=== PATIENT | male | born 1935 | race Caucasian/White ===

== ENCOUNTER → 2017-01-22 10:17 | Day surgery (SDC) | payer MEDICARE ==
[~2017-01-22 10:17] MED LIST: Acetaminophen TAB* 325 MG PO PRN; Buffered Lidocaine 1% SYRIN* 3 ML/SYR SYRINGE INTRADERM ONE; Cyclopentolate 1% OPTH.SOL* 2 ML BTL ONE; Flurbiprofen 0.03% OPTH.SOL* 2.5 ML BTL ONE; Lidocaine 1% MPF* 2 ML VIAL ONE; Lidocaine 2% EPI 1:200000 MPF* 20 ML VIAL ONE; Midazolam* 1 MG/ML 2 ML VIAL (2 MG) ONE; Neomycin/Polymy/Dex OPTH.SUSP* MAXITROL 0.1% 5 ML ONE; Phenylephrine 2.5% OPTH.SOL* 2 ML BTL ONE; Povidone Iodine 5% OPTH* 30 ML BTL ONE; Proparacaine 0.5% OPHTH.SOL* 15 ML BTL ONE; acetaZOLAMIDE TAB* 250 MG ONE
[2017-01-22 13:46] VITALS: BP 109/67
--- NOTE | 2017-01-23 04:15 | OP ---
DATE OF OPERATION: 01/22/17 - [facility] DATE OF : 35 SURGEON: Moises Guillen MD PREOPERATIVE DIAGNOSIS: Cataract, left eye. POSTOPERATIVE DIAGNOSIS: Cataract, left eye. OPERATIVE PROCEDURE: Phacoemulsification, left eye with IOL. DESCRIPTION OF PROCEDURE: The patient was brought to the operating room after being given 1/2% Alcaine with epinephrine drops in the preoperative area. The eye was prepped and draped in the usual sterile fashion. Sterile drape and eyelid speculum were placed. Again, topical 1/2% Alcaine with epinephrine was given. A paracentesis incision was made at the 3 o'clock position with the No.75 blade. Clear cornea incision 2.2 x 2.2-mm was created at the 6 o'clock position starting at the anterior limbus using the 2.2-mm keratome. The anterior chamber was irrigated with 0.4 mL of 1% non-preservative intracameral lidocaine and filled with DisCoVisc. A capsulorrhexis was completed using the cystotome and the Utrata forceps. Hydrodissection was performed with balanced salt solution. The lens nucleus was removed with the Phacoemulsification handpiece without incident. Cortex was removed with the irrigation-aspiration handpiece. The capsular bag was re-inflated using DisCoVisc and an SN60WF 17.5 implant was inserted with the shooter. The irrigation-aspiration handpiece was used to remove all residual DisCoVisc. The eye was refilled with balanced salt solution and the wound checked and found to be watertight. Topical Maxitrol drops were given. [id number]/[facility] #: [id number] [facility]ITAL[facility]
== END | disposition home or self-care (01) ==
LOC: OREAST 10:17
PROVIDERS: ATTEND Specialist
DX: H25.812 Combined forms of age-related cataract, left eye (principal); E11.3293 Type 2 diabetes mellitus with mild nonproliferative diabetic retinopathy without macular edema, bilateral; H18.613 Keratoconus, stable, bilateral; I27.81 Cor pulmonale (chronic); E66.01 Morbid (severe) obesity due to excess calories; Z68.42 Body mass index [BMI] 45.0-49.9, adult; D56.3 Thalassemia minor; I10 Essential (primary) hypertension; I35.0 Nonrheumatic aortic (valve) stenosis
CPT/HCPCS: J2250; V2632

== ENCOUNTER 2017-05-12 15:25 | Observation (INO) | payer MEDICARE ==
--- NOTE | 2017-05-12 16:11 | RAD ---
INDICATION: Weakness COMPARISON: July 11, 2015 TECHNIQUE: An AP portable view obtained at 1538 hours is submitted. FINDINGS: Bones/Soft Tissues: There are no acute bony findings. Cardiomediastinal: The correct silhouette is enlarged. The central pulmonary vessels and interstitium are prominent. Lungs: No focal consolidation. Pleura: Small bilateral pleural effusions. Other: None IMPRESSION: WORSENING INTERSTITIAL CONGESTION.
[2017-05-12 16:12] LABS: Add Diff/Slide Review? Slide Review Added; Comments Flag Yes; Hematocrit 37 % (42-52); Hemoglobin 11.6 g/dl (14.0-18.0); Mean Corpuscular HGB Conc 32 g/dl (31-36); Mean Corpuscular Hemoglobin 20 pg (27-31); Mean Corpuscular Volume 63 fL (80-94); Mean Platelet Volume 9 um3 (7.4-10.4); Red Blood Count 5.84 10^6/ul (4.0-5.4); Red Cell Distribution Width 15 % (10.5-15); White Blood Count 16.1 10^3/ul (3.5-10.8)
[2017-05-12 16:45] LABS: Hypochromasia 3+; Immature Granulocytes 16 % (0-9); Microcytosis 2+; Neutrophil % 76 % (38-83); Stomatocytes 1+
[2017-05-12 16:46] LABS: Add Path Review? YES
[2017-05-12] MEDS ORDERED: HYDROmorphone* 1 MG/ML 1 ML SYR IV SLOW PU ONE (16:51)
[2017-05-12] MEDS ORDERED: NS 0.9% 1000 ML* 1,000 ML IV ONE ×2 (16:51→16:56)
[2017-05-12] MEDS ORDERED: Ondansetron INJ* 2 MG/ML VIAL IV ONE (16:51)
[2017-05-12] MEDS ORDERED: ceFAZolin 1 GM ADVAN(*) 1 GM in NS 0.9% 50 ML* 50 ML IVPB ONE (16:52)
[2017-05-12] MEDS ORDERED: NS 0.9% 50 ML* 50 ML ONE (16:55)
--- NOTE | 2017-05-12 17:25 | ED ---
Rhonda Heredia Edward, scribed for Verito Meyer MD on 05/12/17 at 1529 . Lower Extremity - HPI Summary HPI Summary: 82 y/o male JYOTI c/o acute on chronic leg pain starting at 11:00 this morning. Patient states his legs are chronically weak but only became painful this morning. The patient can't ambulate or stand due to pain. He also injured his L leg 2 days ago. Associated sx: bilateral edema in the LE's. PMHx DM and knee problems. - History of Current Complaint Stated Complaint: LEG PAIN Time Seen by Provider: 05/12/17 15:27 Hx Obtained From: Patient Onset of Pain: Hours - 11:00 this morning, Prior to Arrival Onset/Duration: Weeks - Weekness in both legs for weeks. Pain starting this morning Timing: Constant Associated Signs And Symptoms: Positive: Swelling - Bilateral legs, Weakness - Bilateral legs, Knee Pain - Bilateral - Allergies/Home Medications Allergies/Adverse Reactions: Allergies Allergy/AdvReac Type Severity Reaction Status Date / Time Adhesive Tape [Paper Tape] Allergy Unknown Verified 05/12/17 15:32 Reaction Details Home Medications: Home Medications Diclofenac 1% GEL (NF) [Voltaren 1% GEL (NF)] 1 applic TOPICAL QID 05/12/17 [ History Confirmed 05/12/17] Digoxin [Digitek] 62.5 mcg PO DAILY 05/12/17 [History Confirmed 05/12/17] Docusate CAP* [Colace Cap*] 100 mg PO DAILY 05/12/17 [History Confirmed 05/12/17 ] Furosemide TAB* [Lasix TAB*] 80 mg PO BID 05/12/17 [History Confirmed 05/12/17] Ranitidine TAB (NF) [Zantac TAB (NF)] 150 mg PO DAILY 05/12/17 [History Confirmed 05/12/17] aMILoride TAB* [Midamor TAB*] 5 mg PO DAILY 05/12/17 [History Confirmed 05/12/17 ] PMH/Surg Hx/FS Hx/Imm Hx Previously Healthy: No Endocrine/Hematology History: Reports: Hx Blood Transfusions, Hx Diabetes - TYPE II- ON ORAL MEDICATION FOR, Other Endocrine/Hematological Disorders - thalasemia Denies: Hx Anticoagulant Therapy, Hx Thyroid Disease, Hx Anemia Cardiovascular History: Reports: Hx Hypertension - ON MEDICATION FOR, 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 Denies: Hx Pacemaker/ICD Respiratory History: Reports: Hx Chronic Obstructive Pulmonary Disease (COPD) - O2 dependent, Hx Sleep Apnea, Other Respiratory Problems/Disorders - CONTINUOUS O2 2 LITERS VIA NASAL CANNULA Denies: Hx Asthma GI History: Reports: Hx Gall Bladder Disease, Hx Ulcer - gerd Denies: Hx Jaundice Musculoskeletal History: Reports: Hx Arthritis - KNEES Denies: Hx Back Problems Sensory History: Reports: Hx Cataracts, Hx Contacts or Glasses - GLASSES Denies: Hx Hearing Aid Opthamlomology History: Reports: Hx Cataracts, Hx Contacts or Glasses - GLASSES Neurological History: Reports: Hx Headaches - Surgical History Surgery Procedure, Year, and Place: 1970 Hx Anesthesia Reactions: No Infectious Disease History: Denies: Hx Clostridium Difficile, Hx Hepatitis, Hx Human Immunodeficiency Virus (HIV), Hx of Known/Suspected MRSA, Hx Shingles, Hx Tuberculosis - Family History Known Family History: Positive: Cardiac Disease - CAD - mother 80's, Respiratory Disease - COPD - father in 70's - Social History Alcohol Use: Daily Alcohol Amount: 0.5 CAN BEER DAILY Hx Substance Use: No Substance Use Type: Reports: None Hx Tobacco Use: Yes Smoking Status (MU): Former Smoker Type: Cigarettes Amount Used/How Often: 2 PPD X 32 YEARS Have You Smoked in the Last Year: No Review of Systems Constitutional: Negative Eyes: Negative ENT: Negative Cardiovascular: Negative Respiratory: Negative Gastrointestinal: Negative Genitourinary: Negative Positive: Arthralgia - Bilateral knee pain, Edema - Bilateral legs Skin: Negative Positive: Weakness - Bilateral legs Psychological: Normal All Other Systems Reviewed And Are Negative: Yes Physical Exam Triage Information Reviewed: Yes Vital Signs On Initial Exam: Initial Vitals Temp Pulse Resp BP Pulse Ox 97.9 F 100 18 87/59 95 05/12/17 15:29 05/12/17 15:29 05/12/17 15:29 05/12/17 15:29 05/12/17 15:29 Vital Signs Reviewed: Yes Appearance: Positive: Well-Appearing, No Pain Distress Skin: Positive: Warm, Skin Color Reflects Adequate Perfusion, Dry, Erythema @ - Lots of erythema on both legs, Other - Abrasion on L leg over the front Eyes: Positive: EOMI, NAZARIO ENT: Positive: Pharynx normal, TMs normal Neck: Positive: Supple, Nontender Respiratory/Lung Sounds: Positive: Clear to Auscultation, Breath Sounds Present , Other - Tachypnic. Negative: Rales, Rhonchi, Wheezes Cardiovascular: Positive: RRR, Other - No gallop. Negative: Murmur, Rub Abdomen Description: Positive: Nontender, Soft, Other: - No rebound. Negative: Distended, Guarding Bowel Sounds: Positive: Present Musculoskeletal: Positive: Strength/ROM Intact, Edema Left - To upper legs, Edema Right - To upper legs Neurological: Positive: Sensory/Motor Intact, Alert, Oriented to Person Place, Time, CN Intact II-III Psychiatric: Positive: Affect/Mood Appropriate Diagnostics - Vital Signs Vital Signs Temp Pulse Resp BP Pulse Ox 05/12/17 16:59 85 20 95 05/12/17 16:30 83 89/61 93 05/12/17 16:00 87 98/59 93 05/12/17 15:53 98 98/51 91 05/12/17 15:32 103 93 05/12/17 15:30 97.9 F 95 18 87/59 95 05/12/17 15:29 97.9 F 100 18 87/59 95 - Laboratory Lab Results: Lab Results 05/12/17 Range/Units 15:44 WBC 16.1 H (3.5-10.8) 10^3/ul RBC 5.84 H (4.0-5.4) 10^6/ul Hgb 11.6 L (14.0-18.0) g/dl Hct 37 L (42-52) % MCV 63 L (80-94) fL MCH 20 L (27-31) pg MCHC 32 (31-36) g/dl RDW 15 (10.5-15) % Plt Count 153 (150-450) 10^3/ul MPV 9 (7.4-10.4) um3 Immature Gran % (Auto) 16 H (0-9) % Neut % (Auto) 89.4 H (38-83) % Lymph % (Auto) 1.9 L (25-47) % Glades % (Auto) 8.3 (1-9) % Eos % (Auto) 0.1 (0-6) % Baso % (Auto) 0.3 (0-2) % Absolute Neuts (auto) 14.4 H (1.5-7.7) 10^3/ul Absolute Lymphs (auto) 0.3 L (1.0-4.8) 10^3/ul Absolute Monos (auto) 1.3 H (0-0.8) 10^3/ul Absolute Eos (auto) 0 (0-0.6) 10^3/ul Absolute Basos (auto) 0.1 (0-0.2) 10^3/ul Absolute Nucleated RBC 0.04 10^3/ul Neutrophils % 76 (38-83) % Band Neutrophils % 16 H (0-8) % Lymphocytes % 3 L (25-47) % Monocytes % 4 (0-13) % Basophils % 1 (0-2) % Nucleated RBC % 0.3 Normal RBC Morphology Not Reportable Hypochromasia 3+ Microcytosis 2+ Stomatocytes 1+ Elliptocytes 1+ Hem Pathologist Commnt Pending Result Diagrams: 05/12/17 15:44 Lab Statement: Any lab studies that have been ordered have been reviewed, and results considered in the medical decision making process. - Radiology CXR Xray Interpretation: Positive (See Comments) - WORSENING INTERSTITIAL CONGESTION. Radiology Interpretation Completed By: Radiologist - EKG 1 EKG Rhythm: Sinus Rhythm - @ 92 bpm EKG Interpretation: 15:51 - RBBB EKG Comparison: No Significant Change - 08/04/14 Lower Extremity Course/Dx - Course Course Of Treatment: 82 yo morbidly obese male with long standing lower ext edema with increased pain today. He has an abrasion over his left leg anteriorally and has a bandemia and wbc. Ancef has been ordered and given his low bp fluids have been ordered. the case was discussed with Dr. Martinez for admission - Diagnoses Provider Diagnoses: Type 2 diabetes mellitus, Cellulitis Discharge - Discharge Plan Condition: Stable Disposition: HOME The documentation as recorded by the Rhonda lyn Edward accurately reflects the service I personally performed and the decisions made by me, Verito Meyer MD.
[2017-05-12] MEDS ORDERED: Acetaminophen TAB* 325 MG PO PRN (17:56)
[2017-05-12] MEDS ORDERED: Dextrose 50% Syringe 50 ML* 25 GM/50 ML SYRINGE IV PUSH PRN (17:56)
[2017-05-12 17:58] LABS: Albumin 3.4 g/dL (3.2-5.2); C Reactive Protein 22.77 mg/L (< 5.00); EGFR African American 72.5 (>60); EGFR Non-African American 56.3 (>60); Globulin 3.7 g/dL (2-4); Total Bilirubin 1.7 mg/dL (0.2-1.0); Total Protein 7.1 g/dL (6.4-8.9)
[2017-05-12] MEDS ORDERED: Ondansetron INJ* 2 MG/ML VIAL IV SCH (18:00)
[2017-05-12] MEDS ORDERED: NS 0.9% 1000 ML* 1,000 ML IV SCH (18:00)
[2017-05-12] MEDS ORDERED: Insulin NPH(*) 1 UNITS UNIT SUBCUT SCH (18:00)
[2017-05-12] MEDS ORDERED: Albuterol 2.5 MG/3 ML NEB.SOL* (0.083%) INH PRN (18:12)
[2017-05-12 19:08] LABS: Urine Bacteria 1+ (Absent); Urine Bilirubin Negative (Negative); Urine Glucose Negative (Negative); Urine Nitrite Negative (Negative)
[2017-05-12] MEDS ORDERED: cefTRIAXone VIAL(*) 1,000 MG in NS 0.9% 50 ML* 50 ML IVPB SCH (20:00)
[2017-05-12] MEDS ORDERED: Ondansetron INJ* 2 MG/ML VIAL IV PRN (20:17)
[2017-05-12] MEDS: Heparin VIAL(*) 5000 UNITS/ML VIAL (FIVE THOUSAND) SUBCUT SCH (21:14)
[2017-05-12 22:17] LABS: Potassium 3.8 mmol/L (3.5-5.0)
--- NOTE | 2017-05-13 04:53 | HP ---
CC: Dr. Weston * HISTORY AND PHYSICAL: DATE OF ADMISSION: 05/12/17 PRIMARY CARE PROVIDER: Dr. Weston. ATTENDING PHYSICIAN WHILE IN THE HOSPITAL: Dr. Sarah Villela * (report dictated by Kole Dunham NP). CHIEF COMPLAINT: 1. Confusion. 2. Chills. 3. Shaking. 4. Weakness. HISTORY OF PRESENT ILLNESS: Mr. Huitron is an 82-year-old male patient who has a history of AFib, not on anticoagulation; history of GI bleed; history of diabetes; CKD, stage 3; aortic stenosis; BPH; hypertension; COPD; thalassemia minor; glaucoma; and NARA, who does not wear a mask. He comes in to the ER today and the stating that this morning it was noted that she was gone blueberry picking, he called his because he just was not feeling good. He was feeling shaky. He was feeling weak. His came back to evaluate him. It was noted that he was not acting himself. He could not operate his mechanical wheelchair. There was concern that he was acting confused, so she called 911. When 911 got there, they noted that he had a low-grade temperature of 100. There was an episode of nausea, but no vomiting. He denied having any dysuria. When the ambulance got there for the first time, he refused transport to the hospital. The patient's was still concerned because he could not get out of his wheelchair, which he normally can do to get into his recliner. He again tried for about 40 minutes. She called his primary. The primary felt that he should come in to the ER, so he came in. There has been reports of 4 days ago that the patient did scuff his left leg outside when on his wheelchair and he has noticed that there has been increasing redness and swelling at the site. It is on the pretibial area of the left lower extremity. He says he has not had any dysuria. No nausea but there has been no vomiting. He denied any dysuria. There has been no cough. He says he is short of breath, but it is not any worse that at his baseline. He was concerned because of this confusion and weakness and they came into the hospital. He was evaluated here. It was noted that he had bandemia. He had a white count. There was concern for cellulitis possibly from an underlying urinary infection, so the hospitalist service was asked to evaluate for admission. PAST MEDICAL HISTORY: Significant for: 1. AFib. 2. Diabetes. 3. CKD, stage 3. 4. Aortic stenosis. 5. BPH. 6. Hypertension. 7. COPD. 8. Thalassemia minor. 9. Glaucoma. 10. NARA. PAST SURGICAL HISTORY: 1. He has had a cholecystectomy. 2. Tonsillectomy. HOME MEDICATIONS: According to the list that he provided us includes: 1. Midamor 5 mg daily. 2. Hytrin 5 mg daily. 3. Zantac 150 mg daily. 4. Multivitamin 1 tablet daily. 5. Laxative formula 3 tablets p.o. daily as needed. 6. Insulin NPH take 55 units in the morning, 35 units at bedtime. 7. Lasix 80 mg p.o. twice a day. 8. Colace 100 mg daily. 9. Digoxin 62.5 mcg p.o. daily. 10. Diclofenac 1 application topically 4 times a day. 11. Tylenol Extra Strength 500 mg p.o. daily as needed. ALLERGIES TO MEDICATIONS: Include none, but he is allergic to ADHESIVE TAPES. FAMILY HISTORY: Mother had history of CAD. Father had a history of COPD. SOCIAL HISTORY: He is a former smoker, does not drink alcohol. Surrogate decision maker is his . REVIEW OF SYSTEMS: There is no documented fever. He does admit to having chills. No significant weight change. No double vision. He denies having any ear discharge. There was no rhinorrhea, no sore throat, no thyroid enlargement. Denies having any chest pain. There is no orthopnea, no nocturnal dyspnea. There was no abdominal pain. There was one episode of nausea, but no vomiting, no dysuria. There is no frequency. There is no seizure. No loss of consciousness, no pruritus. No skin ulcerations. Review of 14 systems completed, all others negative. PHYSICAL EXAMINATION GENERAL: At this time, Mr. Huitron is an 82-year-old male patient. He is morbidly obese. He is sitting in the hospital recliner. He does not appear to be in any acute distress. VITAL SIGNS: Blood pressure 96/57 with a pulse of 84, respirations 18, O2 sat 95% on 2 L, temperature 97.9. HEENT: Head is atraumatic and normocephalic. Eyes: EOMs are intact. His sclerae are anicteric. Throat: Oral mucosa appears dry. No oropharyngeal erythema. NECK: Supple. LUNGS: Clear to auscultation. No wheezes, rales, or rhonchi. HEART: Sounds S1, S2. Irregularly irregular rate. No murmurs, rubs, or gallops. ABDOMEN: Soft, flat, nontender. Bowel sounds are present. EXTREMITIES: Pulses 2+ throughout. He does have what appears to be chronic venous stasis, but he does have an open area noted to the left pretibial area and an abrasion. NEUROLOGIC: He is awake, alert, and oriented x3. Tongue midline. Poultry Service Technician were equal. No gross focal deficits. SKIN: On the left pretibial area, he has an abrasion noted with some surrounding erythema and warmth and skin tear again sustained 4 days ago. No other open areas were noted. DIAGNOSTIC STUDIES/LAB DATA: His labs today, some of which are pending, revealed WBC of 16.1, RBC of 5.84, hemoglobin 11.6, hematocrit is 37, which is near his baseline, bands of 16%. His sodium, potassium, and chloride are pending. His bicarb is 32. His BUN is 27. His creatinine is 1.23, right near his baseline. His glucose was 70. Lactic 1.4, calcium 9, total bili 1.7, AST 24 , ALT 11, alk phos 73, CRP 22, albumin of 3.4. He did have a chest x-ray obtained today, which revealed worsening interstitial congestion, although he is not having any symptoms of this. He had an EKG obtained today, which showed atrial fibrillation with a rate of 92. He does have a right bundle branch block, which appears to be similar to previous EKGs. Old medical records were reviewed. ASSESSMENT AND PLAN: Mr. Huitron is an 82-year-old male patient with multiple medical problems coming into the ER today with complaints of not feeling well, chills, weakness, and confusion on evaluation and found to be septic with evidence of bandemia, elevated white count. Fortunately, he is not tachycardic currently. He is a little hypotensive. His blood pressures were initially in the 80s, they are now up to 96/57 with fluids. He will be admitted under inpatient status for: 1. Sepsis secondary to most likely cellulitis. Again, his urine is pending but I suspect the sources are leg. I am going to go ahead and put him on Rocephin. He did get a dose of Ancef down here. With Rocephin, we will cover staph and strep pretty well and in addition to this, if there is any urinary component, will cover that as well. My plan is to go ahead and continue to follow him closely. Should he has any deterioration, I would broaden his antibiotics out to vancomycin, but this looks to me to be a strep-like infection. We will hydrate him. Blood cultures have been sent and we will follow closely. 2. Atrial fibrillation. He is rate controlled. He is not on any blood thinners because of the history of bleeding. I will continue his meds as prescribed. 3. Diabetes. Put him on his NPH; in addition to this, put him on sliding scale. 4. Chronic kidney disease, stage 3. His creatinine is stable. 5. Aortic stenosis. Follow up with his primary. 6. Benign prostatic hypertrophy. Continue his Hytrin. 7. Hypertension. I am going to hold his antihypertensive in the setting of sepsis. 8. Chronic obstructive pulmonary disease. I will order p.r.n. albuterol. 9. Thalassemia minor. His H and H is stable. We will follow. 10. Glaucoma. He can follow up with his primary, not an active issue. 11. History of obstructive sleep apnea. Follow with primary. 12. DVT prophylaxis. I will go ahead and place him on heparin subcu as he is high risk for deep venous thrombosis. 13. Code status. Full code. 14. Fluid, electrolyte, nutrition. He can have a consistent carb diet. TIME SPENT: Time spent on the admission was approximately 60 minutes, greater than half the time spent [id number] with the patient obtaining my history and physical, the other half of the time was spent going over the plan of care with the patient and implementing plan of care. I did discuss the plan of care with my attending, Dr. Villela, she is in agreement. KOLE DUNHAM, YING [id number]/[facility] #: [id number] DARYL
[2017-05-13 05:25] LABS: Hematocrit 34 % (42-52); Hemoglobin 10.3 g/dl (14.0-18.0); Mean Corpuscular HGB Conc 30 g/dl (31-36); Mean Corpuscular Hemoglobin 19 pg (27-31); Mean Platelet Volume 9 um3 (7.4-10.4); Red Blood Count 5.31 10^6/ul (4.0-5.4); Red Cell Distribution Width 16 % (10.5-15); White Blood Count 14.4 10^3/ul (3.5-10.8)
[2017-05-13 05:31] LABS: Comments Flag Yes; Mean Corpuscular Volume 64 fL (80-94)
[2017-05-13 05:38] LABS: BUN/Creatinine Ratio 20.3 (8-20); Calcium 8.3 mg/dL (8.6-10.3); EGFR African American 56.3 (>60); EGFR Non-African American 43.8 (>60); Potassium 4.7 mmol/L (3.5-5.0)
[2017-05-13] MEDS: Heparin VIAL(*) 5000 UNITS/ML VIAL (FIVE THOUSAND) SUBCUT SCH (06:14)
[2017-05-13] MEDS ORDERED: Insulin LISPRO* 1 UNITS UNIT SUBCUT SCH (07:30)
--- NOTE | 2017-05-13 07:55 | PN ---
Subjective - Subjective Reason for Note: Discharge Note History: Discharge summary I reviewed the history with the patient and also the H and P provided by Kole Dunham NP. He has a left hunter abrasion he sustained 5 days ago, and he has developed some surrounding erythema. However, the more significant symptoms is that he has an urge to urinate, but only a small volume comes out. He denies dysuria. He had shakes yesterday and was disoriented/weak/couldn't transfer. He had a poor appetite yesterday, but yesterday evening this improved. Overnight, he has had no fever, chills or sweats. He states he has more mental clarity and that he cannot get comfortable. He feels ready to go home and that he will do better there. Active Problems: Active Problems Cellulitis of left lower leg (Acute) L03.116 Urinary tract infection (Acute 08/04/14) Aortic stenosis (Chronic) I35.0 Atrial fibrillation (Chronic) I48.91 BPH (benign prostatic hyperplasia) (Chronic) N40.0 CKD (chronic kidney disease) stage 3, GFR 30-59 ml/min (Chronic) N18.3 COPD (chronic obstructive pulmonary disease) (Chronic) J44.9 Essential hypertension (Chronic) I10 Morbid obesity with body mass index of 45.0-49.9 in adult (Chronic) E66.01, Z68.42 Pickwickian syndrome (Chronic) E66.2 Thalassemia (Chronic) D56.9 Type 2 diabetes mellitus (Chronic) Current Medications: Current Medications Acetaminophen (Tylenol Tab*) 650 mg PO Q4H PRN PRN Reason: FEVER/PAIN Albuterol (Ventolin 2.5 Mg/3 Ml Neb.Yessy*) 2.5 mg INH Q2H PRN PRN Reason: SOB/WHEEZING Dextrose (D50w Syringe 50 Ml*) 12.5 gm IV PUSH .FOR FS < 60 - SS PRN PRN Reason: FS < 60 Digoxin (Lanoxin Tab*) 0.0625 mg PO DAILY [facility] Docusate Sodium (Colace Cap*) 100 mg PO DAILY [facility] Heparin Sodium (Porcine) (Heparin Vial(*)) 5,000 units SUBCUT Q8HR [facility] Last Admin: 05/13/17 06:14 Dose: 5,000 units Sodium Chloride (Ns 0.9% 1000 Ml*) 1,000 mls @ 100 mls/hr IV PER RATE [facility] Last Admin: 05/12/17 20:03 Dose: 100 mls/hr Ceftriaxone Sodium 1,000 mg/ (Sodium Chloride) 50 mls @ 200 mls/hr IVPB Q24H [facility] Last Admin: 05/12/17 20:28 Dose: 200 mls/hr Insulin Human Lispro (Humalog*) 0 units SUBCUT AC [facility] PRN Reason: Protocol Insulin Human NPH (Insulin Nph(*)) 55 units SUBCUT QAM [facility] Insulin Human NPH (Insulin Nph(*)) 35 units SUBCUT QPM [facility] Last Admin: 05/12/17 21:14 Dose: 35 units Ondansetron HCl (Zofran Inj*) 4 mg IV Q6H PRN PRN Reason: NAUSEA Terazosin HCl (Hytrin Cap*) 5 mg PO DAILY [facility] - Review of Systems Constitutional Symptoms: No: Night Sweats Dermatology: Skin Lesions: Yes - left hunter Pulmonary: Negative: Cough, Sputum, Wheezing Cardiology: Positive: Swelling of Ankles Negative: Chest Pain, Shortness of Breath, Palpitations Gastroenterology: Negative: Abdominal Pain, Nausea, Vomiting, Anorexia, Change in Bowel Habits Genital - Urinary: Positive: Polyuria, Other - unable to empty his bladder Neurology: Positive: Other - no photophobia/neck stiffness Negative: Headache Home Medications: Home Medications Medication Instructions Recorded Confirmed Type Terazosin CAP* [Hytrin CAP*] 5 mg PO DAILY 06/07/13 05/12/17 History Acetaminophen [Acetaminophen Extra 500 tab PO DAILY PRN 01/03/17 05/12/17 History Stren] Insulin NPH (Human) (Isophane) 45 unit SUBCUT QPM 01/03/17 05/12/17 History [Novolin N Relion] Insulin NPH (Human) (Isophane) 55 unit SUBCUT QAM 01/03/17 05/12/17 History [Novolin N Relion] Misc Natural Products [Laxative 3 tab PO DAILY PRN 01/03/17 05/12/17 History Formula] Multiple Vitamin [One Daily] 1 tab PO DAILY 01/03/17 05/12/17 History Diclofenac 1% GEL (NF) [Voltaren 1 applic TOPICAL QID 05/12/17 05/12/17 History 1% GEL (NF)] Digoxin [Digitek] 62.5 mcg PO DAILY 05/12/17 05/12/17 History Docusate CAP* [Colace Cap*] 100 mg PO DAILY 05/12/17 05/12/17 History Furosemide TAB* [Lasix TAB*] 80 mg PO BID 05/12/17 05/12/17 History Ranitidine TAB (NF) [Zantac TAB 150 mg PO DAILY 05/12/17 05/12/17 History (NF)] aMILoride TAB* [Midamor TAB*] 5 mg PO DAILY 05/12/17 05/12/17 History Allergies: Allergies Allergy/AdvReac Type Severity Reaction Status Date / Time Adhesive Tape [Paper Tape] Allergy Unknown Verified 05/12/17 15:32 Reaction Details Objective - Vital Signs Vital Signs: Vital Signs 05/12/17 05/12/17 05/12/17 18:00 18:30 18:58 Temperature Pulse Rate 85 76 69 Respiratory Rate Blood Pressure 88/44 (mmHg) O2 Sat by Pulse 96 97 94 Oximetry 05/12/17 05/12/17 05/12/17 19:00 19:04 19:49 Temperature 98.2 F Pulse Rate 73 78 Respiratory 22 Rate Blood Pressure 88/73 92/44 (mmHg) O2 Sat by Pulse 95 97 Oximetry 05/12/17 05/12/17 05/13/17 20:00 23:33 03:02 Temperature 98.2 F 98.5 F Pulse Rate 78 53 20 Respiratory 22 20 78 Rate Blood Pressure 92/44 105/54 (mmHg) O2 Sat by Pulse 97 98 96 Oximetry 05/13/17 03:20 Temperature 97.6 F Pulse Rate 51 Respiratory 20 Rate Blood Pressure 116/51 (mmHg) O2 Sat by Pulse 99 Oximetry - Intake and Output Intake and Output: Intake & Output 05/10/17 05/11/17 05/12/17 05/13/17 11:59 11:59 11:59 11:59 Intake Total 1790 Output Total 0 Balance 1790 Weight 343 lb 4.8 oz Intake: IV Fluids 990 NS (0.9%) 990 Oral 800 Output: Urine 0 Other: Estimated Void Medium # Bowel Movements 0 # Voids 1 ADLs: Meal Record Start: 05/12/17 18: 53 Freq: DAILY@0900,1400,1800 Status: Active Created 05/12/17 18:53 System (Rec: 05/12/17 18:53 System [email or web address]) Intake and Output Start: 05/12/17 15: 30 Freq: Status: Active Created 05/12/17 15:30 System (Rec: 05/12/17 15:30 System [id number]) Intake and Output Start: 05/12/17 18: 53 Freq: DAILY@0600,1400,2200 Status: Active Created 05/12/17 18:53 System (Rec: 05/12/17 18:53 System [email or web address]) Document 05/12/17 22:00 [id number] (Rec: 05/12/17 22:17 [id number] [id number]) Document 05/13/17 01:37 [id number] (Rec: 05/13/17 01:38 [id number] MED-C26) Document 05/13/17 05:08 [id number] (Rec: 05/13/17 05:08 [id number] MED-C26) Document 05/13/17 05:43 [id number] (Rec: 05/13/17 05:44 [id number] [id number]) - Physical Exam General Physical Exam Comment: Warm and well perfused. He is conversational and oriented x 3 - can give an account of himself. Left hunter - he has an abrasion and skin flap, the is mild surrounding erythema, local cellulitis General: No Cyanosis, No Anemia, No Jaundice, No Clubbing Endocrine: Yes Central Obesity Lungs and Chest: Yes: Chest Expansion Full, Chest Expansion Symetrica, Percussion Note Resonant, Vessicular Breath Sounds. No: Crackles, Wheezes Heart Rate and Rhythm: Irregular Additional Cardiovascular: Yes: Normal Heart Sounds, Pedal Edema. No: Heart Murmur Abdominal Exam: Yes: Soft, Bowel Sounds Present. No: Distention, Abdominal Mass , Hepatomegaly, Abdominal Tenderness, Guarding, Rebound Tenderness - Extremities Cranial Nerves II-XII Intact: Yes - Neuro Orientation: A/O x3 Psychiatric: Normal Speech: Normal Results - Results Lab Results: Laboratory Results - last 24 hr 05/12/17 05/12/17 05/13/17 18:41 19:42 04:59 WBC 14.4 H RBC 5.31 Hgb 10.3 L Hct 34 L MCV 64 L MCH 19 L MCHC 30 L RDW 16 H Plt Count 133 L MPV 9 Neut % (Auto) 82.9 Lymph % (Auto) 7.4 L Payette % (Auto) 8.4 Eos % (Auto) 1.1 Baso % (Auto) 0.2 Absolute Neuts (auto) 12.0 H Absolute Lymphs (auto) 1.1 Absolute Monos (auto) 1.2 H Absolute Eos (auto) 0.2 Absolute Basos (auto) 0 Absolute Nucleated RBC 0.01 Nucleated RBC % 0.1 Sodium Potassium Chloride Carbon Dioxide Anion Gap BUN Creatinine Est GFR ( Amer) Est GFR (Non-Af Amer) BUN/Creatinine Ratio Glucose POC Glucose (mg/dL) 164 H Calcium Urine Color Yellow Urine Appearance Cloudy Urine pH 5.0 Ur Specific Butler 1.011 Urine Protein Negative Urine Ketones Negative Urine Blood 1+ H Urine Nitrate Negative Urine Bilirubin Negative Urine Urobilinogen Negative Ur Leukocyte Esterase 3+ H Urine WBC (Auto) 3+(>20/hpf) H Urine RBC (Auto) 2+(6-10/hpf) H Ur Squamous Epith Cells Present H Urine Bacteria 1+ H Hyaline Casts Present H Urine Glucose Negative 05/13/17 04:59 WBC RBC Hgb Hct MCV MCH MCHC RDW Plt Count MPV Neut % (Auto) Lymph % (Auto) Payette % (Auto) Eos % (Auto) Baso % (Auto) Absolute Neuts (auto) Absolute Lymphs (auto) Absolute Monos (auto) Absolute Eos (auto) Absolute Basos (auto) Absolute Nucleated RBC Nucleated RBC % Sodium 135 Potassium 4.7 Chloride 100 L Carbon Dioxide 32 Anion Gap 3 BUN 31 H Creatinine 1.53 H Est GFR ( Amer) 56.3 Est GFR (Non-Af Amer) 43.8 BUN/Creatinine Ratio 20.3 H Glucose 113 H POC Glucose (mg/dL) Calcium 8.3 L Urine Color Urine Appearance Urine pH Ur Specific Butler Urine Protein Urine Ketones Urine Blood Urine Nitrate Urine Bilirubin Urine Urobilinogen Ur Leukocyte Esterase Urine WBC (Auto) Urine RBC (Auto) Ur Squamous Epith Cells Urine Bacteria Hyaline Casts Urine Glucose Radiology Results: Patient Name: VIRGILIO ARTEAGA Medical Record#: [id number] Ordering Physician: Verito Meyer MD Acct.#: [id number] : 1935 Age: 82 Sex: M Location: EMERGENCY DEPARTMENT Exam Date: 05/12/17 1537 ADM Status: REG ER Order Information: CHEST AP PORTABLE Accession Number: [id number] CPT: 52898 INDICATION: Weakness COMPARISON: July 11, 2015 TECHNIQUE: An AP portable view obtained at 1538 hours is submitted. FINDINGS: Bones/Soft Tissues: There are no acute bony findings. Cardiomediastinal: The correct silhouette is enlarged. The central pulmonary vessels and interstitium are prominent. Lungs: No focal consolidation. Pleura: Small bilateral pleural effusions. Other: None IMPRESSION: WORSENING INTERSTITIAL CONGESTION. <Electronically signed by Erick Kevin MD in OV> 05/12/17 1608 Dictated By: Erick Kevin MD Dictated Date/Time: 05/12/17 1608 Transcribed Date/Time: 05/12/17 1606 Copy to: CC:Iván Weston MD; Verito Meyer MD Imaging - [facility] - [facility] Imaging - [facility] [address] [place] [address] ph [phone]) ph ([phone]) ph ([phone]) 1 of 1 Assessment - Problem List Assessment: Patient Problems Cellulitis of left lower leg (Acute) Urinary tract infection (Acute 08/04/14) Aortic stenosis (Chronic) Atrial fibrillation (Chronic) BPH (benign prostatic hyperplasia) (Chronic) CKD (chronic kidney disease) stage 3, GFR 30-59 ml/min (Chronic) COPD (chronic obstructive pulmonary disease) (Chronic) Essential hypertension (Chronic) Morbid obesity with body mass index of 45.0-49.9 in adult (Chronic) Pickwickian syndrome (Chronic) Thalassemia (Chronic) Type 2 diabetes mellitus (Chronic) Acute kidney injury (Acute 08/04/14) Elevated bilirubin (Acute 08/04/14) Glaucoma (Chronic) Non-insulin dependent type 2 diabetes mellitus (Chronic) Plan: Urinary tract infection (Acute 08/04/14) He likely has urinary retention with overflow. I will check a bladder scan post void and place a Carpio catheter if there is a residual. He is resistant about this. I will have him see a urologist after discharge. He is not septic, the WBC and % neuts are coming down, his glycemic control is good, he is well hydrated. I think he will do fine with oral antibacterials Cellulitis left lower leg He has an abrasion - this is a minor patch of cellulitis. The antibacterial for his UTI will help Aortic stenosis (Chronic) secondary diagnosis Atrial fibrillation (Chronic) secondary diagnosis BPH (benign prostatic hyperplasia) (Chronic) secondary diagnosis CKD (chronic kidney disease) stage 3, GFR 30-59 ml/min (Chronic) secondary diagnosis COPD (chronic obstructive pulmonary disease) (Chronic) secondary diagnosis Essential hypertension (Chronic) secondary diagnosis Morbid obesity with body mass index of 45.0-49.9 in adult (Chronic) secondary diagnosis Pickwickian syndrome (Chronic) secondary diagnosis Thalassemia (Chronic) secondary diagnosis Type 2 diabetes mellitus (Chronic) on target Glaucoma (Chronic) secondary diagnosis I discussed this with the patient. He is considering the Carpio catheter. I will hopefully be able to discharge him later today.
[2017-05-13] MEDS ORDERED: Terazosin CAP* 5 MG PO SCH (09:00)
[2017-05-13] MEDS ORDERED: Cefdinir cap (NF) 300 MG CAP PO SCH (09:00)
[2017-05-13] MEDS ORDERED: Insulin NPH(*) 1 UNITS UNIT SUBCUT SCH (09:00)
[2017-05-13] MEDS ORDERED: Digoxin TAB* 0.125 MG PO SCH (09:00)
[2017-05-13] MEDS ORDERED: Docusate CAP* 100 MG PO SCH (09:00)
[2017-05-13 11:02] VITALS: BP 100/79
== END 2017-05-13 10:50 | disposition home or self-care (01) ==
LOC: ED 15:25 → INTOOBSV 17:45 → OBSVTOIN 17:45 → MED 17:45 → UNDODISIN 05-13 10:50
PROVIDERS: ADMIT Internal Medicine; ATTEND Internal Medicine
DX: L03.116 Cellulitis of left lower limb (principal); R33.9 Retention of urine, unspecified; N39.0 Urinary tract infection, site not specified; N18.3 Chronic kidney disease, stage 3 (moderate); E11.9 Type 2 diabetes mellitus without complications; Z79.4 Long term (current) use of insulin; I35.0 Nonrheumatic aortic (valve) stenosis; I48.91 Unspecified atrial fibrillation; I12.9 Hypertensive chronic kidney disease with stage 1 through stage 4 chronic kidney disease, or unspecified chronic kidney disease; J44.9 Chronic obstructive pulmonary disease, unspecified; E66.2 Morbid (severe) obesity with alveolar hypoventilation; D56.9 Thalassemia, unspecified; E66.01 Morbid (severe) obesity due to excess calories; Z68.42 Body mass index [BMI] 45.0-49.9, adult; N40.0 Benign prostatic hyperplasia without lower urinary tract symptoms
CPT/HCPCS: 36415; 71010; 80048; 80053; 81003; 81015; 83605; 85025; 85060; 86140; 87040; 87077; 87086; 87186; 93005; 94760; 96374; 96375; 99284; A9270-GY; G0378; J0690; J0696; J1170; J1644; J2405

== ENCOUNTER 2020-06-25 03:39 | Inpatient (IN) ==
[2020-06-25] MEDS ORDERED: NS 0.9% 1000 ml BAG 1,000 ML IV ONE (04:11)
[2020-06-25] MEDS ORDERED: Pantoprazole VIAL 40 MG VIAL IV ONE (04:11)
[2020-06-25 05:02] LABS: ABS Eosinophils 0.2 10^3/ul (0-0.6); ABS Lymphocytes 0.7 10^3/ul (1.0-4.8); ABS Monocytes 0.7 10^3/ul (0-0.8); ABS Neutrophils 5.8 10^3/ul (1.5-7.7); Eosinophil % 2.9 %; Hematocrit 31 % (42-52); Hemoglobin 9.7 g/dL (14.0-18.0); Lymphocyte % 9.4 %; Mean Corpuscular HGB Conc 32 g/dL (31-36); Mean Corpuscular Hemoglobin 20 pg (27-31); Mean Corpuscular Volume 64 fL (80-94); Mean Platelet Volume 8.4 fL (7.4-10.4); Nucleated Red Blood Cells % 0.1; Platelet Count 125 10^3/uL (150-450); Red Blood Count 4.79 10^6 /uL (4.18-5.48); Red Cell Distribution Width 15 % (10-15); White Blood Count 7.4 10^3/uL (3.5-10.8)
[2020-06-25 05:10] LABS: Albumin 3.2 g/dL (3.2-5.2); Calcium 8.3 mg/dL (8.6-10.3); Potassium 4.6 mmol/L (3.5-5.0)
[2020-06-25 05:16] LABS: Albumin/Globulin Ratio 1.2 (1-3); BUN/Creatinine Ratio 27.2 (8-20); EGFR African American 60.3 (>60); EGFR Non-African American 49.8 (>60); Globulin 2.6 g/dL (2-4); Total Protein 5.8 g/dL (6.4-8.9)
[2020-06-25 05:17] LABS: INR 1.2 (0.82-1.09)
[2020-06-25 05:18] LABS: Activated Partial Thrombo Time 23.9 seconds (26.0-38.0)
[2020-06-25] MEDS: NS 0.9% 1000 ml BAG 1,000 ML IV SCH (09:16)
[2020-06-25] MEDS ORDERED: Dextrose 50% Syringe 50 ml 25 GM/50 ML SYRINGE IV PUSH PRN (10:53)
[2020-06-25 11:33] LABS: Hematocrit 29 % (42-52); Hemoglobin 9.1 g/dL (14.0-18.0)
[2020-06-25] MEDS: Pantoprazole VIAL 40 MG VIAL IV SCH (15:50)
[2020-06-25] MEDS ORDERED: Midazolam 10 mg/10 ml VIAL 1 mg/ml 10 ml VIAL (10 mg) ONE (16:31)
[2020-06-25] MEDS ORDERED: fentaNYL 100 mcg/2 ml 50 MCG/ML VIAL ONE (16:31)
[2020-06-25] MEDS ORDERED: PEG 3000 GI LAVAGE 1 GALLON PO ONE (18:08)
[2020-06-25 21:07] LABS: ABS Basophils 0.1 10^3/ul (0-0.2); ABS Eosinophils 0.1 10^3/ul (0-0.6); ABS Lymphocytes 1.2 10^3/ul (1.0-4.8); Eosinophil % 0.9 %; Hematocrit 27 % (42-52); Hemoglobin 8.6 g/dL (14.0-18.0); Lymphocyte % 10.9 %; Mean Corpuscular HGB Conc 32 g/dL (31-36); Mean Corpuscular Hemoglobin 21 pg (27-31); Mean Corpuscular Volume 64 fL (80-94); Mean Platelet Volume 7.9 fL (7.4-10.4); Platelet Count 130 10^3/uL (150-450); Red Blood Count 4.16 10^6 /uL (4.18-5.48); Red Cell Distribution Width 16 % (10-15); White Blood Count 11.4 10^3/uL (3.5-10.8)
[2020-06-26 00:53] LABS: Hematocrit 25 % (42-52); Hemoglobin 7.9 g/dL (14.0-18.0)
[2020-06-26] MEDS: Pantoprazole VIAL 40 MG VIAL IV SCH ×2 (06:04→15:59)
[2020-06-26 07:52] LABS: BUN/Creatinine Ratio 28.5 (8-20); Calcium 7.9 mg/dL (8.6-10.3); EGFR African American 59.8 (>60); EGFR Non-African American 49.4 (>60); Potassium 4.9 mmol/L (3.5-5.0)
[2020-06-26 08:37] LABS: Hematocrit 23 % (42-52); Hemoglobin 7.6 g/dL (14.0-18.0)
[2020-06-26] MEDS ORDERED: Influenza VAC *QUAD* 2020-21* 0.5 ML SYRINGE IM ONE (09:00)
[2020-06-26 10:14] LABS: ABS Eosinophils 0.2 10^3/ul (0-0.6); ABS Lymphocytes 0.9 10^3/ul (1.0-4.8); ABS Monocytes 0.8 10^3/ul (0-0.8); ABS Neutrophils 6.7 10^3/ul (1.5-7.7); Eosinophil % 1.9 %; Mean Corpuscular HGB Conc 33 g/dL (31-36); Mean Corpuscular Hemoglobin 21 pg (27-31); Mean Corpuscular Volume 65 fL (80-94); Mean Platelet Volume 9.2 fL (7.4-10.4); Nucleated Red Blood Cells % 0.3; Platelet Count 112 10^3/uL (150-450); Red Blood Count 3.54 10^6 /uL (4.18-5.48); Red Cell Distribution Width 16 % (10-15); White Blood Count 8.6 10^3/uL (3.5-10.8)
[2020-06-26] MEDS: NS 0.9% 1000 ml BAG 1,000 ML IV SCH (16:56)
[2020-06-26 18:10] LABS: Hematocrit 21 % (42-52); Hemoglobin 6.5 g/dL (14.0-18.0)
[2020-06-27] MEDS: Pantoprazole VIAL 40 MG VIAL IV SCH ×2 (04:16→18:57)
[2020-06-27 05:38] LABS: Hematocrit 21 % (42-52); Hemoglobin 6.8 g/dL (14.0-18.0)
[2020-06-27] MEDS ORDERED: PEG 3000 GI LAVAGE 1 GALLON PO ONE (10:59)
[2020-06-27 13:48] LABS: Hematocrit 22 % (42-52); Hemoglobin 7.1 g/dL (14.0-18.0)
[2020-06-27] MEDS ORDERED: Midazolam 10 mg/10 ml VIAL 1 mg/ml 10 ml VIAL (10 mg) ONE (14:51)
[2020-06-27] MEDS ORDERED: fentaNYL 100 mcg/2 ml 50 MCG/ML VIAL ONE (14:51)
[2020-06-27 18:00] LABS: Hematocrit 23 % (42-52); Hemoglobin 7.2 g/dL (14.0-18.0)
[2020-06-27 19:51] LABS: Coagulation F VIII Activity 223 % (55 - 200)
[2020-06-27] MEDS: NS 0.9% 1000 ml BAG 1,000 ML IV SCH (22:21)
[2020-06-28] MEDS: Pantoprazole VIAL 40 MG VIAL IV SCH (04:05)
[2020-06-28 07:52] LABS: Hematocrit 20 % (42-52); Hemoglobin 6.7 g/dL (14.0-18.0)
[2020-06-28 08:07] LABS: Calcium 7.8 mg/dL (8.6-10.3); EGFR African American 39.5 (>60); EGFR Non-African American 32.7 (>60); Potassium 4.8 mmol/L (3.5-5.0)
[2020-06-28 13:24] VITALS: BP 122/52
== END 2020-06-28 11:50 | disposition short-term general hospital (02) | DRG 378 ==
LOC: ED 03:39 → MED 06:43
PROVIDERS: ADMIT Student in an Organized Health Care Education/Training Program; ATTEND Internal Medicine